=== PATIENT | female | born 1980 | race Two or more races ===

== ENCOUNTER 2021-04-29 14:20 | Emergency (ER) | payer SELFPAY ==
[~2021-04-29] VITALS: Ht 152.4 cm; Wt 56.7 kg
[2021-04-29 14:26] VITALS: BP 157/86
[2021-04-29 14:53] LABS: Urine Bacteria NONE SEEN /hpf (None Seen); Urine Blood Negative /uL (Negative); Urine Mucus FEW (None Seen); Urine Specific Gravity 1.035 (1.001-1.035); Urine WBC 16 /hpf (0 - 5)
== END 2021-04-29 15:30 | disposition left against medical advice (07) ==
LOC: ER 14:20
DX: R30.0 Dysuria (principal); Z53.21 Procedure and treatment not carried out due to patient leaving prior to being seen by health care provider
CPT/HCPCS: 81001